=== PATIENT | female | born 1965 | race Caucasian/White ===

== ENCOUNTER 2016-05-19 15:17 | Emergency (ER) | payer OTHER ==
--- NOTE | 2016-05-19 17:28 | ED CLINICAL REPORT ---
Clinical Report - Physicians/Mid Levels [facility] [address] [place] [address] 05/19/2016 15:20 Patient: SCOTT MACHADO Time Seen: 16:13 May 19 2016. Arrived- By private vehicle. Historian- patient. CPT: ER phys charges level 4 (#[id number]). HISTORY OF PRESENT ILLNESS Chief Complaint: HEADACHE. Is still present. 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 Onset during light activity. It is described as similar to previous headaches. Located in the region of the left eye and left hemicranial, left parietal and left temporal region. At its maximum, severity described as moderate. When seen in the E.D., severity described as moderate. Modifying factors: worsened by bright light; relieved by rest. The patient has had photophobia, nausea and vomiting. Similar symptoms previously: Several times, as bad. Diagnosis: migraine. Recent medical care: Not recently seen/assessed. REVIEW OF SYSTEMS No fever, muscle aches, sinus pressure, ear pain or sore throat. No head injury, chest pain, difficulty breathing, cough or abdominal pain. No diarrhea, pain with urination, skin rash, enlarged lymph nodes or back pain. All systems otherwise negative, except as recorded above. PAST HISTORY History of occasional chronic migraine headaches; Since age 15 has had evaluation with CT scan and neurologist. Chronic neck pain : Sometimes trigger MONTELONGO. Had injections 2 months ago but they did not last. Thyroid disease. Medications: Levothyroxine Sodium Oral. Allergies: Codeine. Dilaudid. Oxycodone HCl. SOCIAL HISTORY Never smoker. No alcohol use or drug use. ADDITIONAL NOTES The nursing notes have been reviewed. PHYSICAL EXAM Vital Signs: 05/19/2016 15:25 BP: 146/90. HR: 92. RR: 18. O2 saturation: 100%. Temp: 98.2 F. Pain level now: 8/10. Appearance: Alert. Appears to be in pain. Patient in moderate distress. Eyes: Photophobia present. Pupils equal, round and reactive to light. ENT: Ears normal. Nose normal. Pharynx normal. Neck: Normal inspection. Neck supple. No meningeal signs. CVS: Normal heart rate and rhythm. Heart sounds normal. Pulses normal. Respiratory: No respiratory distress. Breath sounds normal. Abdomen: Soft and nontender. Back: Normal inspection. Skin: Skin warm. Normal skin color. No rash. Extremities: Extremities exhibit normal ROM. No lower extremity edema. Neuro: Oriented X 3. Alert. Mood/affect normal. Speech normal. Cranial nerves normal (as tested). No cerebellar findings. No motor deficit. No sensory deficit. Reflexes normal. PROGRESS AND PROCEDURES Course of Care: IV NS Toradol 30 mg IV Benadryl 12.5 mg IV Regaln 10 mg IV Demerol 12.5 mg IV 17:25 05/19/16. Much better. Out of flexeril for her neck and the neck triggers the MONTELONGO. Patient is stable. Symptoms much better. Patient/family counseled. Disposition: Discharged. Condition: stable and improved. CLINICAL IMPRESSION Acute and chronic recurrent migraine headache without aura, with status migrainosus- refractory to treatment. No hemiplegia. Chronic neck pain. INSTRUCTIONS Warnings: Further evaluation is necessary. SEDATIVE MEDICATION: You were given sedative medication during your visit. Do not drive or operate dangerous machinery. Your Current Medications: CONTINUE TAKING THE FOLLOWING MEDICATIONS: Levothyroxine Sodium Oral. Prescription Medications: Flexeril 10 mg: Take 1 orally every 8 hours as needed for muscle spasm. Dispense twenty (20). No refills. Substitution is permissible. Follow-up: Follow up with your doctor in two days if not better. Understanding of the discharge instructions verbalized by patient. Discharge instructions reviewed with and understanding was verbalized by spouse. (Electronically signed by Andre Vanessa MD 05/21/2016 22:21)
--- NOTE | 2016-05-19 17:28 | ED NURSING NOTES ---
Clinical Report - Nurses [facility] [address] [place] [address] 05/19/2016 15:20 Patient: SCOTT MACHADO TRIAGE Triage time 15:25. Acuity: LEVEL 4. Chief Complaint: HEADACHE. 15:05/19/16. 15:05/19/16. Alert. ( MONTELONGO causing N/V/D. Pt has chronic neck pain and this could be causing her MONTELONGO). SEPSIS SCREEN: Sepsis Screen. Negative (no infection suspected/documented). VEANNCIO COMA SCORE: [place] Coma Scale: 15- eyes open spontaneously (4); best verbal response- oriented x 4 (5); best motor response- obeys commands (6). --15:33 Savage Garcia R.N. 15:25 05/19/16. BP: 146/90. HR: 92. RR: 18. O2 saturation: 100% on room air. Temp: 98.2 F (oral). Pain level now: 11/11. --15:33 Savage Garcia R.N. Weight: 104.3 kg stated. Height/Length: 71 inches Per Patient. BMI: 32.1. --15:26 Savage Garcia R.N. Medications Levothyroxine Sodium Oral. --15:28 Savage Garcia R.N. Medication/allergy information source: the patient and patient's family. --15:33 Savage Garcia R.N. Allergies Codeine. Dilaudid. --15:27 Savage Garcia R.N. Oxycodone HCl. --15:27 Savage Garcia R.N. History Arrived by private vehicle. Historian: patient. Accompanied by family. Primary physician (No PCP). 15:05/19/16. Onset. (TUESDAY). 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 PAST MEDICAL HX: Last normal menstrual period- Started on Apr 20. Immunizations not up to date. SOCIAL HX: Never smoker. No alcohol use or drug use. Infectious disease exposure. (work). ABUSE ASSESSMENT: No report of abuse. FALL RISK ASSESSMENT: Fall risk assessment completed. No fall risk identified. NUTRITIONAL RISK ASSESSMENT: The nutritional risk assessment revealed no deficiencies. FUNCTIONAL ASSESSMENT: Functional assessment: no impairments noted. LEARNING NEEDS ASSESSMENT: The learning needs assessment revealed no barriers. SKIN INTEGRITY ASSESSMENT: Skin integrity risk assessment completed. No skin integrity risk identified. --15:33 Savage Garcia R.N. PROBLEMS: Thyroid Disease. Vomiting. Influenza. Prior Injury, Same Area. Muscle Strain, Upper Extremity. Fall. Myofascial Strain. Tetanus Status. Immunizations. RSD. LNMP - Last Normal Menstrual Period. Insomnia. Left should pain. Migraine Headache. --15:28 Savage Garcia R.N. Neck Pain. --15:28 Savage Garcia R.N. ADDITIONAL SURGERIES: Cholecystectomy. Colonoscopy. Dental Surgery. Tonsillectomy. --15:28 Savage Garcia R.N. Assessment 15:05/19/16. --15:33 Savage Garcia R.N. Interventions 15:05/19/16. 15:05/19/16. ID and allergy band on patient. To treatment room. --15:33 Savage Garcia R.N. PHYSICAL ASSESSMENT 15:05/19/16. GENERAL / NEURO / PSYCH: Alert. Oriented X 4. Appears in pain. RESPIRATORY: Respirations not labored. CVS: Capillary refill less than 2 seconds. SKIN: Skin is warm and dry. --15:29 Savage Garcia R.N. NURSING PROGRESS NOTES 15:05/19/16. The plan of care for this patient has been created. Patient gowned. Head of bed elevated. Reassurance given. Two patient identifiers checked. Call light placed in reach. Side rails up x 2. Bed placed in lowest position. Brakes of bed on. Brakes of chair on. --15:29 Savage Garcia R.N. 15:05/19/16. Patient ready for evaluation- chart flagged and notification provided. --15:29 Savage Garcia R.N. 15:38 05/19/2016 Site #1 started via IV in the left antecubital space with an 20g angiocath, with aseptic technique and good blood return; one attempt. Blood drawn: rainbow set. Labeled in the presence of the patient and sent to the lab. Saline lock flushed with 10 mL saline. --15:38 Savage Garcia R.N. 15:38 05/19/2016 Started bag #1 1000 mL IV Fluids IV NS (Saline); at 1000 mL/hr over 1 hour(s) via site #1. Allergies verified and confirmed 5 rights. IV patency established. IV site checked: no pain, redness, or swelling. IV flushed thoroughly pre- and post-medication administration. Completed per protocol. --15:38 Savage Garcia R.N. 15:38 05/19/2016 Zofran (Ondansetron HCl) IVP 4 mg given over 2 minute(s) via site #1. Allergies verified and confirmed 5 rights. IV patency established. IV site checked: no pain, redness, or swelling. IV flushed thoroughly pre- and post-medication administration. IVP given by RN. --15:39 Savage Garcia R.N. 16:30 05/19/2016 Toradol IVP 30 mg given over 2 minute(s) via site #1. Allergies verified and confirmed 5 rights. IV patency established. IV site checked: no pain, redness, or swelling. IV flushed thoroughly pre- and post-medication administration. IVP given by RN. --16:37 Sosa King R.N. 16:32 05/19/2016 Benadryl (DiphenhydrAMINE HCl) IVP 12.5 mg given over 2 minute(s) via site #1. Allergies verified, confirmed 5 rights and sedative warning given to the patient. IV patency established. IV site checked: no pain, redness, or swelling. IV flushed thoroughly pre- and post-medication administration. IVP given by RN. --16:38 Sosa King R.N. 16:34 05/19/2016 Reglan (Metoclopramide HCl) IVP 10 mg given over 2 minute(s) via site #1. Allergies verified and confirmed 5 rights. IV patency established. IV site checked: no pain, redness, or swelling. IV flushed thoroughly pre- and post-medication administration. IVP given by KATERIN. --16:38 Sosa King R.N. 16:36 05/19/2016 Demerol (Meperidine HCl) IVP 12.5 mg given over 2 minute(s) via site #1. Allergies verified and confirmed 5 rights. IVP given by RN. --16:39 Sosa King R.N. 16:54 05/19/16. Patient and family informed about reason for wait and about plan of care. --16:54 Savage Garcia R.N. 16:54 05/19/16. Reassessment after medication administered. Overall patient status is improved- she states feels better. --16:54 Savage Garcia R.N. 17:00 05/19/2016 IV Fluids IV NS Discontinued: bag #1 infused. Total amount infused: 1000 mL. IV patency established. IV site checked: no pain, redness, or swelling. IV flushed thoroughly. --17:43 Savage Garcia R.N. DISPOSITION / DISCHARGE 17:39 05/19/2016 Site #1 removed upon discharge. Catheter intact. --17:39 Savage Garcia R.N. 17:39 05/19/16. Condition at departure: improved. The goals identified in the patient's plan of care were met. No learning barriers present. Discharge instructions provided and reviewed with the patient and spouse. Reviewed warnings. Reviewed medication(s). Treatments reviewed. Patient and spouse verbalized understanding. Written instructions provided in Haitian. The patient was discharged by the physician. She was discharged home and accompanied by family. She left the Emergency Department ambulatory and via private vehicle. Family member driving. FALL RISK ASSESSMENT: Fall risk assessment completed. No fall risk identified. --17:39 Savage Garcia R.N. 17:38 05/19/16. BP: 122/80. HR: 86. RR: 14. O2 saturation: 99% on room air. Temp: 98.1 F (oral). Pain level now: 07/12. --17:39 Savage Garcia R.N. 17:39 05/19/16. Departure time: 17:39. --17:39 Savage Garcia R.N. Locked/Released at 05/19/2016 17:43 by Savage Garcia R.N.
--- NOTE | 2016-05-19 17:28 | ED ORDER SUMMARY ---
..... Patient: SCOTT MACHADO OrderSheet [facility] VisitID: [id number] [address] [place] [address] 50y, F Registration Date/Time: 05/19/2016 ORDER SHEET Weight: 104.3 kg (stated) Allergies: Codeine, Dilaudid, Oxycodone HCl GENERAL ORDERS: MEDICATION ORDERS: IV FLUIDS: Zofran IV 4 mg (NOW) (15:38 05/19/2016 JBoardley R.N. per protocol) (15:39 JBoardley R.N.) IV NS : initial bolus none -, then 1000 mL/hr for X1 (NOW) (15:38 05/19/2016 JBoardley R.N. per protocol) (15:38 JBoardley R.N.) Reglan IV 10 mg (NOW) (16:15 05/19/2016 Gómez BARAJAS) (Ack 16:22 Attila R.N.) (16:38 Attila R.N.) Toradol IV 30 mg (NOW) (16:15 05/19/2016 Gómez BARAJAS) (Ack 16:22 Attila R.N.) (16:37 Attila R.N.) Benadryl IV 12.5 mg (NOW) (16:15 05/19/2016 Gómez BARAJAS) (Ack 16:23 Attila R.N.) (16:38 Attila R.N.) Demerol IV 12.5 mg (NOW) (16:16 05/19/2016 Gómez BARAJAS) (Ack 16:23 Attila R.N.) (16:39 Attila R.N.) ORDER SHEET NOTES: [Electronically signed by Savage Garcia R.N. (17:43 05/19/2016)] [Electronically signed by Andre Vanessa MD (22:21 05/21/2016)] [Electronically locked/signed by Savage Garcia R.N. (17:43 05/19/2016)]
--- NOTE | 2016-05-19 17:28 | ED CLINICAL REPORT ---
Clinical Report - Physicians/Mid Levels [facility] [address] [place] [address] 05/19/2016 15:20 Patient: SCOTT MACHADO Time Seen: 16:13 May 19 2016. Arrived- By private vehicle. Historian- patient. CPT: ER phys charges level 4 (#[id number]). HISTORY OF PRESENT ILLNESS Chief Complaint: HEADACHE. Is still present. This started about 4 days [employer] CON[employer]CT. Onset during light activity. It is described as similar to previous headaches. Located in the region of the left eye and left hemicranial, left parietal and left temporal region. At its maximum, severity described as moderate. When seen in the E.D., severity described as moderate. Modifying factors: worsened by bright light; relieved by rest. The patient has had photophobia, nausea and vomiting. Similar symptoms previously: Several times, as bad. Diagnosis: migraine. Recent medical care: Not recently seen/assessed. REVIEW OF SYSTEMS No fever, muscle aches, sinus pressure, ear pain or sore throat. No head injury, chest pain, difficulty breathing, cough or abdominal pain. No diarrhea, pain with urination, skin rash, enlarged lymph nodes or back pain. All systems otherwise negative, except as recorded above. PAST HISTORY History of occasional chronic migraine headaches; Since age 15 has had evaluation with CT scan and neurologist. Chronic neck pain : Sometimes trigger MONTELONGO. Had injections 2 months ago but they did not last. Thyroid disease. Medications: Levothyroxine Sodium Oral. Allergies: Codeine. Dilaudid. Oxycodone HCl. SOCIAL HISTORY Never smoker. No alcohol use or drug use. ADDITIONAL NOTES The nursing notes have been reviewed. PHYSICAL EXAM Vital Signs: 05/19/2016 15:25 BP: 146/90. HR: 92. RR: 18. O2 saturation: 100%. Temp: 98.2 F. Pain level now: 8/10. Appearance: Alert. Appears to be in pain. Patient in moderate distress. Eyes: Photophobia present. Pupils equal, round and reactive to light. ENT: Ears normal. Nose normal. Pharynx normal. Neck: Normal inspection. Neck supple. No meningeal signs. CVS: Normal heart rate and rhythm. Heart sounds normal. Pulses normal. Respiratory: No respiratory distress. Breath sounds normal. Abdomen: Soft and nontender. Back: Normal inspection. Skin: Skin warm. Normal skin color. No rash. Extremities: Extremities exhibit normal ROM. No lower extremity edema. Neuro: Oriented X 3. Alert. Mood/affect normal. Speech normal. Cranial nerves normal (as tested). No cerebellar findings. No motor deficit. No sensory deficit. Reflexes normal. PROGRESS AND PROCEDURES Course of Care: IV NS Toradol 30 mg IV Benadryl 12.5 mg IV Regaln 10 mg IV Demerol 12.5 mg IV 17:25 05/19/16. Much better. Out of flexeril for her neck and the neck triggers the MONTELONGO. Patient is stable. Symptoms much better. Patient/family counseled. Disposition: Discharged. Condition: stable and improved. CLINICAL IMPRESSION Acute and chronic recurrent migraine headache without aura, with status migrainosus- refractory to treatment. No hemiplegia. Chronic neck pain. INSTRUCTIONS Warnings: Further evaluation is necessary. SEDATIVE MEDICATION: You were given sedative medication during your visit. Do not drive or operate dangerous machinery. Your Current Medications: CONTINUE TAKING THE FOLLOWING MEDICATIONS: Levothyroxine Sodium Oral. Prescription Medications: Flexeril 10 mg: Take 1 orally every 8 hours as needed for muscle spasm. Dispense twenty (20). No refills. Substitution is permissible. Follow-up: Follow up with your doctor in two days if not better. Understanding of the discharge instructions verbalized by patient. Discharge instructions reviewed with and understanding was verbalized by spouse. (Electronically signed by Andre Vanessa MD 05/21/2016 22:21)
--- NOTE | 2016-05-19 17:28 | ED ORDER SUMMARY ---
..... Patient: SCOTT MACHADO OrderSheet [facility] VisitID: [id number] [address] [place] [address] 50y, F Registration Date/Time: 05/19/2016 ORDER SHEET Weight: 104.3 kg (stated) Allergies: Codeine, Dilaudid, Oxycodone HCl GENERAL ORDERS: MEDICATION ORDERS: IV FLUIDS: Zofran IV 4 mg (NOW) (15:38 05/19/2016 JBoardley R.N. per protocol) (15:39 JBoardley R.N.) IV NS : initial bolus none -, then 1000 mL/hr for X1 (NOW) (15:38 05/19/2016 JBoardley R.N. per protocol) (15:38 JBoardley R.N.) Reglan IV 10 mg (NOW) (16:15 05/19/2016 Gómez BARAJAS) (Ack 16:22 Attila R.N.) (16:38 Attila R.N.) Toradol IV 30 mg (NOW) (16:15 05/19/2016 Gómez BARAJAS) (Ack 16:22 Attila R.N.) (16:37 Attila R.N.) Benadryl IV 12.5 mg (NOW) (16:15 05/19/2016 Gómez BARAJAS) (Ack 16:23 Attila R.N.) (16:38 Attila R.N.) Demerol IV 12.5 mg (NOW) (16:16 05/19/2016 Gómez BARAJAS) (Ack 16:23 Attila R.N.) (16:39 Attial R.N.) ORDER SHEET NOTES: [Electronically signed by Savage Garcia R.N. (17:43 05/19/2016)] [Electronically signed by Andre Vanessa MD (22:21 05/21/2016)] [Electronically locked/signed by Savage Garcia R.N. (17:43 05/19/2016)]
--- NOTE | 2016-05-21 22:21 | ED MAR SUMMARY ---
..... Medication Administration Record [facility] [address] [place] [address] Patient: SCOTT MACHADO Visit ID: [id number] 50y, F Weight: 104.3 kg Height/Length: 71 in BMI: 32.1 ALLERGIES: Codeine, Dilaudid, Oxycodone HCl Start 15:38 05/19/2016 Savage Garcia R.N., Stop 17:00 05/19/2016 Savage Garcia R.N. Medication Administered: IV NS (SALINE), Dose: IV Fluids over 1 hour(s), Rate: 1000 mL/hr, Dispensed: 1000 mL bag, Site: #1 left AC. Medication Ordered: IV NS : initial bolus none -, then 1000 mL/hr for X1 (NOW). Given 15:38 05/19/2016 Savage Garcia R.N. Medication Administered: ZOFRAN [IVP] (ONDANSETRON HCL), Dose: 4 mg IVP over 2 minute(s), Site: #1 left AC. Medication Ordered: Zofran IV 4 mg (NOW). Given 16:30 05/19/2016 Sosa King R.N. Medication Administered: TORADOL [IVP], Dose: 30 mg IVP over 2 minute(s), Site: #1 left AC. Medication Ordered: Toradol IV 30 mg (NOW). Given 16:32 05/19/2016 Sosa King R.N. Medication Administered: BENADRYL [IVP] (DIPHENHYDRAMINE HCL), Dose: 12.5 mg IVP over 2 minute(s), Site: #1 left AC. Medication Ordered: Benadryl IV 12.5 mg (NOW). Given 16:34 05/19/2016 Sosa King R.N. Medication Administered: REGLAN [IVP] (METOCLOPRAMIDE HCL), Dose: 10 mg IVP over 2 minute(s), Site: #1 left AC. Medication Ordered: Reglan IV 10 mg (NOW). Given 16:36 05/19/2016 Sosa King R.N. Medication Administered: DEMEROL [IVP] (MEPERIDINE HCL), Dose: 12.5 mg IVP over 2 minute(s), Site: #1 left AC. Medication Ordered: Demerol IV 12.5 mg (NOW).
--- NOTE | 2016-05-21 22:21 | ED MED RECONCILIATION SUMMARY ---
Patient: SCOTT MACHADO Medication Reconciliation Report [facility] VisitID: [id number] [address] [place] [address] 50y, F Registration Date/Time: 05/19/2016 Weight: 104.3 kg Height/Length: 71 in. BMI: 32.1 ALLERGIES: Codeine, Dilaudid, Oxycodone HCl The patient's Home Medications are listed below: CONTINUE TAKING THE FOLLOWING MEDICATIONS: Levothyroxine Sodium Oral The source(s) of the original Home Medication information: patient's family member patient The following Medications were given to the patient in the Emergency Department: IV NS IV Fluids bolus 0, then 1000 mL/hr, administered: 05/19/2016 3:38:00 PM Zofran [IVP] IVP 4 mg, administered: 05/19/2016 3:38:00 PM Toradol [IVP] IVP 30 mg, administered: 05/19/2016 4:30:00 PM Benadryl [IVP] IVP 12.5 mg, administered: 05/19/2016 4:32:00 PM Reglan [IVP] IVP 10 mg, administered: 05/19/2016 4:34:00 PM Demerol [IVP] IVP 12.5 mg, administered: 05/19/2016 4:36:00 PM The following Medications were prescribed to the patient: Flexeril 10 mg: Take 1 orally every 8 hours as needed for muscle spasm. Dispense twenty (20). No refills. Substitution is permissible. -- Andre Vanessa MD
--- NOTE | 2016-05-21 22:21 | ED DISCHARGE INSTRUCTIONS ---
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 No hemiplegia. Chronic neck pain. INSTRUCTIONS Warnings: Further evaluation is necessary. SEDATIVE MEDICATION: You were given sedative medication during your visit. Do not drive or operate dangerous machinery. Your Current Medications: CONTINUE TAKING THE FOLLOWING MEDICATIONS: Levothyroxine Sodium Oral. Prescription Medications: Flexeril 10 mg: Take 1 orally every 8 hours as needed for muscle spasm. Dispense twenty (20). No refills. Substitution is permissible. Follow-up: Follow up with your doctor in two days if not better. Understanding of the discharge instructions verbalized by patient. Discharge instructions reviewed with and understanding was verbalized by spouse. ADDITIONAL INFORMATION Migraine Headache Migraine headaches are related to changes in blood flow to the brain. This causes throbbing or constant pain on one or both sides of the head. The pain may last from a few hours to several days. There is usually nausea, vomiting, sensitivity to light and sound, and blurred vision. A migraine attack may be triggered by emotional stress, hormone changes during the menstrual cycle, oral contraceptives, alcohol use, certain foods containing tyramine, eye strain, weather changes, missing meals, or too little or too much sleep. Home Care For This Headache: 1) If you were given pain medicine for this headache, do not drive yourself home . Arrange for a ride, instead. When you get home, try to sleep. You should feel much better when you wake up. 2) Migraine headaches may improve with an ice pack on the forehead or at the base of the skull. Heat to the back of your neck may relieve any neck spasm. 3) Drink only clear liquids or eat a very light diet to avoid nausea/vomiting until symptoms improve. Preventing Future Headaches: 1) Pay attention to those factors that seem to trigger your headache. Try to avoid them when you can. If you have frequent headaches, it is useful to keep a diary of what you were doing, feeling or eating in the hours before each attack. Show this to your doctor to help find the cause of your headaches. a) If you feel that stress is a factor in your headaches, look at the sources of stress in your life. Find ways to release the build-up of those stresses by using regular exercise, relaxation methods (yoga, meditation), bio-feedback or simply taking time-out for yourself. For more information about this, consult your doctor or go to a local bookstore and review books and tapes on this subject. b) Tyramine is a substance present in the following foods : chocolate, yogurt, all cheeses except cottage cheese and cream cheese. smoked or pickled fish and meat (including landis, caviar, bologna, pepperoni, salami), liver, avocados, bananas, figs, raisins, and red wine. Be aware that these foods may trigger a migraine in some persons. Try taking these foods out of your diet for 1-2 months to see if this reduces headache frequency. Treating Future Attacks: 1) At the first sign of a headache, take time out if possible. Find a quiet, dark, comfortable place to sit or lie down. Let yourself relax or sleep. 2) An ice pack on the forehead or area of greatest pain may help. If you are having muscle spasm and tightness of the neck, a heating pad and massage to this area may be helpful. 3) If you have been prescribed a medicine to stop a migraine headache, use this at the very first warning sign of the headache (aura or initial pain) for best results. Follow Up with your doctor if the headache is not better within the next 24 hours. If you have frequent headaches you should discuss a treatment plan with your primary care doctor. Ask if you can have medicine to take at home the next time you get a bad headache. Poorly controlled chronic headaches may require a referral to a neurologist (headache specialist). Get Prompt Medical Attention if any of the following occur: Your head pain gets worse, or does not improve within 24 hours Repeated vomiting (cant keep liquids down) Sinus or ear or throat pain (not already reported) Fever of 100.4 F (38 C) or higher, or as directed by your healthcare provider Stiff neck Extreme drowsiness, confusion or fainting Dizziness, vertigo (dizziness with spinning sensation) Weakness of an arm or leg or one side of the face Difficulty with speech or vision You have been given the following additional information: Headache, Migraine (Classical) (Electronically signed by Andre Vanessa MD 05/21/2016 22:21)
--- NOTE | 2016-05-21 22:21 | ED MED RECONCILIATION SUMMARY ---
Patient: SCOTT MACHADO Medication Reconciliation Report [facility] VisitID: [id number] [address] [place] [address] 50y, F Registration Date/Time: 05/19/2016 Weight: 104.3 kg Height/Length: 71 in. BMI: 32.1 ALLERGIES: Codeine, Dilaudid, Oxycodone HCl The patient's Home Medications are listed below: CONTINUE TAKING THE FOLLOWING MEDICATIONS: Levothyroxine Sodium Oral The source(s) of the original Home Medication information: patient's family member patient The following Medications were given to the patient in the Emergency Department: IV NS IV Fluids bolus 0, then 1000 mL/hr, administered: 05/19/2016 3:38:00 PM Zofran [IVP] IVP 4 mg, administered: 05/19/2016 3:38:00 PM Toradol [IVP] IVP 30 mg, administered: 05/19/2016 4:30:00 PM Benadryl [IVP] IVP 12.5 mg, administered: 05/19/2016 4:32:00 PM Reglan [IVP] IVP 10 mg, administered: 05/19/2016 4:34:00 PM Demerol [IVP] IVP 12.5 mg, administered: 05/19/2016 4:36:00 PM The following Medications were prescribed to the patient: Flexeril 10 mg: Take 1 orally every 8 hours as needed for muscle spasm. Dispense twenty (20). No refills. Substitution is permissible. -- Andre Vanessa MD
--- NOTE | 2016-05-21 22:21 | ED MAR SUMMARY ---
..... Medication Administration Record [facility] [address] [place] [address] Patient: SCOTT MACHADO Visit ID: [id number] 50y, F Weight: 104.3 kg Height/Length: 71 in BMI: 32.1 ALLERGIES: Codeine, Dilaudid, Oxycodone HCl Start 15:38 05/19/2016 Savage Garcia R.N., Stop 17:00 05/19/2016 Savage Garcia R.N. Medication Administered: IV NS (SALINE), Dose: IV Fluids over 1 hour(s), Rate: 1000 mL/hr, Dispensed: 1000 mL bag, Site: #1 left AC. Medication Ordered: IV NS : initial bolus none -, then 1000 mL/hr for X1 (NOW). Given 15:38 05/19/2016 Savage Garcia R.N. Medication Administered: ZOFRAN [IVP] (ONDANSETRON HCL), Dose: 4 mg IVP over 2 minute(s), Site: #1 left AC. Medication Ordered: Zofran IV 4 mg (NOW). Given 16:30 05/19/2016 Sosa King R.N. Medication Administered: TORADOL [IVP], Dose: 30 mg IVP over 2 minute(s), Site: #1 left AC. Medication Ordered: Toradol IV 30 mg (NOW). Given 16:32 05/19/2016 Sosa King R.N. Medication Administered: BENADRYL [IVP] (DIPHENHYDRAMINE HCL), Dose: 12.5 mg IVP over 2 minute(s), Site: #1 left AC. Medication Ordered: Benadryl IV 12.5 mg (NOW). Given 16:34 05/19/2016 Sosa King R.N. Medication Administered: REGLAN [IVP] (METOCLOPRAMIDE HCL), Dose: 10 mg IVP over 2 minute(s), Site: #1 left AC. Medication Ordered: Reglan IV 10 mg (NOW). Given 16:36 05/19/2016 Sosa King R.N. Medication Administered: DEMEROL [IVP] (MEPERIDINE HCL), Dose: 12.5 mg IVP over 2 minute(s), Site: #1 left AC. Medication Ordered: Demerol IV 12.5 mg (NOW).
== END 2016-05-19 17:39 | disposition home or self-care (01) ==
LOC: ED SRH 15:17
DX: G43.011 Migraine without aura, intractable, with status migrainosus (principal); M54.2 Cervicalgia; E07.9 Disorder of thyroid, unspecified; Z88.5 Allergy status to narcotic agent